=== PATIENT | male | born 2000 | race Caucasian/White ===

== ENCOUNTER 2024-12-08 03:30 | Emergency (ER) | payer OTHER ==
[~2024-12-08] VITALS: Ht 172.7 cm; Wt 67.6 kg
[2024-12-08 07:06] VITALS: BP 128/79; TEMP 99; O2SAT 99
[2024-12-08] MEDS: methocarbamoL 750 MG TAB PO ONE (07:49)
[2024-12-08] MEDS: KETOROLAC 60MG 2ML VIAL IM ONE (07:49)
[2024-12-08] MEDS ORDERED: METH-1164 PO (09:03)
== END 2024-12-08 09:10 | disposition home or self-care (01) ==
LOC: M ED 03:30
DX: M62.838 Other muscle spasm (principal); Z79.899 Other long term (current) drug therapy
CPT/HCPCS: 96372; 99282; J1885

== ENCOUNTER 2025-04-23 12:42 | Inpatient (IN) | payer OTHER ==
[~2025-04-23] VITALS: Ht 170.2 cm; Wt 68.2 kg
[~2025-04-23 12:42] MED LIST: METH-1164 PO
[2025-04-23 13:21] LABS: PLATELET COUNT, AUTOMATED 364 10^3/uL (150-450)
[2025-04-23 13:36] LABS: AMPHETAMINES LEVEL URINE NEGATIVE (NEGATIVE)
[2025-04-23 13:37] LABS: BARBITURATES URINE NEGATIVE (NEGATIVE); BENZODIAZEPINES URINE NEGATIVE (NEGATIVE); COCAINE METABOLITE URINE NEGATIVE (NEGATIVE); METHADONE URINE NEGATIVE (NEGATIVE); OPIATES URINE NEGATIVE (NEGATIVE); PHENCYCLIDINE URINE NEGATIVE (NEGATIVE)
[2025-04-23 13:39] LABS: ETHYL ALCOHOL (ETHANOL) < 0.003 % (0.000-0.010)
[2025-04-23 13:41] LABS: ALT/SGPT 52 U/L (7.0-40); AST/SGOT 51 U/L (<34); CALCIUM LEVEL 10.0 MG/DL (8.5-10.1); CARBON DIOXIDE LEVEL 27 MMOL/L (20-31); CHLORIDE LEVEL 105 MMOL/L (98-107); CREATININE FOR GFR 1.12 MG/DL (0.70-1.30); GLOMERULAR FILTRATION RATE > 90.0 (>60); POTASSIUM SERUM 4.9 MMOL/L (3.5-5.1); SALICYLATE LEVEL < 3.0 MG/DL (<30); SODIUM LEVEL 142 MMOL/L (136-145)
[2025-04-23 13:47] LABS: CANNABINOIDS URINE POSITIVE (NEGATIVE)
[2025-04-23] MEDS ORDERED: ACETAMINOPHEN 325 MG TAB PO PRN (17:15)
[2025-04-23] MEDS ORDERED: MAALOX 30 ML SUSP *UDC PO PRN (17:15)
[2025-04-23] MEDS ORDERED: HALOPERIDOL 5 MG TAB PO PRN (17:15)
[2025-04-23] MEDS ORDERED: IBUPROFEN 400 MG TAB PO PRN (17:15)
[2025-04-23] MEDS ORDERED: MOM 30 ML SUSPENSION UDC PO PRN (17:15)
[2025-04-23 18:05] VITALS: BP 143/83; TEMP 97.8; O2SAT 100
[2025-04-23] MEDS: LORazepam 1 MG TAB PO PRN (20:39)
[2025-04-23] MEDS: traZODone 50 MG TAB PO PRN (20:39)
[2025-04-24] MEDS: NICOTINE 14 MG/24 HR TRANSDERMAL TD SCH (08:50)
[2025-04-24] MEDS ORDERED: HOME MED LIST COMPLETE! XX SCH (09:20)
[2025-04-24] MEDS: ESCITALOPRAM OXALATE 10 MG TABLET PO SCH (13:00)
[2025-04-24] MEDS: ESCITALOPRAM OXALATE 5 MG TABLET PO SCH (13:18)
[2025-04-24 16:31] VITALS: BP 143/76; TEMP 98; O2SAT 99
[2025-04-25 06:40] VITALS: BP 131/89; TEMP 97.4; O2SAT 99
[2025-04-25 14:57] VITALS: BP 134/80; TEMP 97.4; O2SAT 99
[2025-04-26 06:45] VITALS: BP 118/58; TEMP 97.5; O2SAT 99
[2025-04-26 15:03] VITALS: BP 134/70; TEMP 97.9; O2SAT 99
[2025-04-27 06:30] VITALS: BP 118/78; TEMP 97.3; O2SAT 98
[2025-04-27] MEDS ORDERED: TRAZ-252 PO (08:36)
[2025-04-27] MEDS ORDERED: LEXA5TAB13 PO (08:36)
== END 2025-04-27 11:28 | disposition home or self-care (01) | DRG 881 ==
LOC: EDBD 12:42 → M ED 12:42 → M ED INP 17:14 → M PSY 17:57
PROVIDERS: ADMIT Internal Medicine; ATTEND Psychiatry & Neurology Psychiatry
DX: F32.A Depression, unspecified (principal); R45.851 Suicidal ideations; F17.290 Nicotine dependence, other tobacco product, uncomplicated; F43.21 Adjustment disorder with depressed mood; F41.9 Anxiety disorder, unspecified; Z63.5 Disruption of family by separation and divorce